=== PATIENT | female | born 1960 | race Caucasian/White ===

== ENCOUNTER 2023-10-22 16:42 | Emergency (ER) | payer OTHER, SELFPAY ==
--- NOTE | ~2023-10-22 | XR_ITS ---
EXAMINATION: XR LUMBOSACRAL SPINE CLINICAL INFORMATION: Low back pain COMPARISON: None available. TECHNIQUE: Three views of the lumbosacral spine. FINDINGS: There is normal lumbar lordosis. The vertebral heights, alignment and disc heights are normal. There is no visible acute fracture, dislocation or subluxation. SI joints are symmetrical and normal. There is moderate stool and gas in colon without distention. XR/XR lumbar spine 2-3V IMPRESSION: Unremarkable lumbar spine exam.
[2023-10-22 17:04] VITALS: BP 139/76; PULSE 95; RESP 18; TEMP 37.2; O2SAT 99; BMI 23.8
--- OUTSIDE RECORDS SUMMARY | 2023-10-22 19:00 | XMS_ITS | Continuity of Care Document ---
Author Name Unknown Organization [facility] lt Address [address] [place] [address]- Care Team Providers Care Trackmobile Operator Name Role Phone Nishant ENCARNACION, Emmanuel Vick Primary Care Physician [phone] [id number] - 04[facility]26/[facility] Adult [address] [place] [address]- Encounter Diagnosis Chronic back pain(Discharge Diagnosis) - 04/19/21 Sinusitis(Discharge Diagnosis) - 04/19/21 Abnormal TSH(Discharge Diagnosis) - 04/19/21 Attending Physician: Not on Staff, Attending MD Referring Physician: Aries MATHIS, Mirella Wright Allergies, Adverse Reactions, Alerts Substance Reaction Severity Status NKA Active Immunizations Given and Recorded Vaccine Date Status Refusal Reason SARS-CoV-2 (COVID-19) Ad26 vaccine 03/05/21 Record ed Diphtheria/Tet/Pertussis, Acel (oldterm) 01/09/18 Given influenza virus vaccine, inactivated 1 08/29/13 Gi sahara influenza virus vaccine, inactivated 2 08/25/11 Gi sahara tetanus-diphtheria toxoids (Td) 10/05/06 Given 1Result Comment: [08/29/2013] PATIENT DECLINES FLU SHOT 2Admin Note: Refused flu shot Medications Agnes By Mouth, 0 Refills, Maintenance, 10/14/16 11:10:52 Start Date: 10/14/16 Status: Ordered cyclobenzaprine 5 mg oral tablet 1 tablet = 5 mg, By Mouth, 3 times a day, for 10 days, # 30 tablet, 0 Refills, Acute 04/29/21 8:00:00 EDT, 04/19/21 8:00:00 EDT, [id number], Partial fill upon patient request if the prescription is for a schedule II opioid drug., 174.5, cm, 05... Start Date: 04/19/21 Stop Date: 04/29/21 Status: Ordered magic mouthwash magic mouthwash, See Instructions, PRN Pain , Mild, # 100 mL, Refills 0, Tot. Refills 0, Maintenance, (30mg benadryl, 30ml lidocaine, 30ml maalox) 5-10ml every 4 hours PRN mouth pain, 04/15/21 15:24:00 EDT, Compound, 174.5, cm, 04/15/21 11:09:00 EDT,... Start Date: 04/15/21 Status: Ordered multivitamin Multiple Vitamins intravenous solution See Instructions, OTC, # 100 each, 0 Refills, Maintenance Start Date: 11/11/12 Status: Ordered omeprazole 20 mg oral delayed release tablet 1 tablet = 20 mg, By Mouth, Every other day, # 15 tablet, 0 Refills, Maintenance, 01/09/18 16:55:57 Start Date: 01/09/18 Status: Ordered Osteo Bi-Flex Plus MSM 1 tablet, By Mouth, Daily, 0 Refills, Maintenance, 02/09/20 7:05:00 EDT Start Date: 02/09/20 Status: Ordered Plaquenil 200 mg oral tablet 200 mg, 1, tablet, By Mouth, Daily, # 30 tablet, Refills 0, Tot. Refills 0, Maintenance, 01/09/18 16:48:40, Do Not Route Start Date: 01/09/18 Status: Ordered Singulair 10 mg oral tablet 10 mg, 1, tablet, By Mouth, Daily, Refills 0, Maintenance, 01/09/19 8:46:05 EST Start Date: 01/09/19 Status: Ordered Vitamin C 500 mg oral tablet 1 tablet = 500 mg, By Mouth, Daily, # 30 tablet, 0 Refills, Maintenance, Tablet Start Date: 11/11/12 Status: Ordered Vitamin D3 1000 intl units oral capsule 1 capsule = 1,000 International_Units, By Mouth, Daily, # 75 capsule, 0 Refills, Maintenance, 02/09/20 7:07:00 EDT, Capsule Start Date: 02/09/20 Status: Ordered Problem List Condition Effective Dates Status Health Status Inform ant Allergic rhinitis(Confirmed) Active Chronic back pain(Confirmed) Active GERD (gastroesophageal reflu x disease)(Confirmed) Active IBS - Irritable bowel syndrome(Confirmed) Active Radiculopathy-C6(Confirmed) Active Rheumatoid arthritis(Confirmed) Active Vitiligo(Confirmed) Active Diagnosis Diagnosis Type Effective Dates Health Status Cl inical Service Informant Chronic back pain Discharge Diagnosis 04/19/21 Sinusitis Discharge Diagnosis 04/19/21 Abnormal TSH Discharge Diagnosis 04/19/21 Vital Signs Most recent to oldest [Reference Range]: 1 Height 174.50 cm (04/19/21 7:30 AM) Weight 72.5 kg (04/19/21 7:30 AM) Oxygen Saturation [94-100 %] 99 % (04/19/21 7:30 AM) Pulse Rate [55-90 bpm] 68 bpm (04/19/21 7:30 AM) Body Mass Index [18.5-24.99] 23.81 (04/19/21 7:30 AM) Blood Pressure [90-138/55-84 mm Hg] 99/6 5mm Hg (04/19/21 7:30 AM) Temperature [96.8-100.4 DegF] 97.7 DegF (04/19/21 7:30 AM) Blood pressure sites Arm, left (04/19/21 7:30 AM) Temperature Route Oral (04/19/21 7:30 AM) Weight Obtained Via Standing scale (04/19/21 7:30 AM) Social History Social History Type Response Smoking Status Never smoker; Tobacc o user in household: No entered on: 06/23/15 Sex
--- OUTSIDE RECORDS SUMMARY | 2023-10-22 19:00 | XMS_ITS | Continuity of Care Document ---
Author Name Unknown Organization [facility] Address [address] [place] [address]- Care Team Providers Care Boiler Out Name Role Phone Nishant ENCARNACION, Emmanuel Vick Primary Care Physician [phone] Encounter [facility] Date(s): 04/07/21 - 05/07/21 [facility] Adult [address] [place] [address]- Allergies, Adverse Reactions, Alerts Substance Reaction Severity [...] 10/14/16 11:10:52 Start Date: 10/14/16 Status: Ordered magic mouthwash magic mouthwash, See [...] Radiculopathy-C6(Confirmed) Active Rheumatoid arthritis(Confirmed) Active Vitiligo(Confirmed) Active Social History Social History Type Response Smoking Status Never smoker; Tobacc o user in household: No entered on: 06/23/15 Sex
--- OUTSIDE RECORDS SUMMARY | 2023-10-22 19:01 | XMS_ITS | Continuity of Care Document ---
Author Name Unknown Organization [facility] Address [address] [place] [address]- Care Team Providers Care Hunter Trapper Name Role Phone Nishant ENCARNACION, Emmaneul Vick Primary Care Physician [place] [facility] Date(s): 04/06/21 - 05/06/21 [facility] Adult [address] [place] [address]- Allergies, Adverse Reactions, Alerts Substance Reaction Severity [...]
--- OUTSIDE RECORDS SUMMARY | 2023-10-22 19:01 | XMS_ITS | Continuity of Care Document ---
Author Name Unknown Organization [facility] Thompson lt Address [address] [place] [address]- Care Team Providers Care Contingents Supervisor Name Role Phone Nishant ENCARNACION, Emmanuel Vick Primary Care Physician [phone] Encounter [facility] Date(s): 04/02/23 - 05/02/23 [facility] Adult [address] [place] [address]- Allergies, Adverse Reactions, Alerts No Known Allergies Immunizations Given and Recorded Vaccine Date Status Refusal Reason [id number] bivalent booster vax 09/20/22 Recorded SARS-CoV-2 (COVID-19) mRNA-1273 vaccine 1 03/03/22 Recorded SARS-CoV-2 (COVID-19) Ad26 vaccine 03/05/21 Record ed Diphtheria/Tet/Pertussis, Acel (oldterm) 01/09/18 Given influenza virus vaccine, inactivated 2 08/29/13 Gi sahara influenza virus vaccine, inactivated 3 08/25/11 Gi sahara tetanus-diphtheria toxoids (Td) 10/05/06 Given 1Result Comment: Booster 2Result Comment: [08/29/2013] PATIENT DECLINES FLU SHOT 3Admin Note: Refused flu shot Medications Agnes By Mouth, 0 Refills, Maintenance, 10/14/16 11:10:52 Start Date: 10/14/16 Status: Ordered Calcium and Zinc oral tablet With Magnesium, 0 Refills, Maintenance, 02/23/23 8:52:00 EDT, Partial fill upon patient request if the prescription is for a schedule II opioid drug. Start Date: 02/23/23 Status: Ordered multivitamin Multiple Vitamins intravenous solution See Instructions, OTC, # 100 each, 0 Refills, Maintenance Start Date: 11/11/12 Status: Ordered omeprazole 20 mg oral delayed release tablet 1 tablet = 20 mg, By Mouth, Daily, # 30 tablet, 0 Refills, Maintenance, 11/11/21 10:45:00 EST, Partial fill upon patient request if the prescription is for a schedule II opioid drug. Start Date: 11/11/21 Status: Ordered Osteo Bi-Flex Plus MSM 1 tablet, By Mouth, Daily, 0 Refills, Maintenance, 02/09/20 7:05:00 EDT Start Date: 02/09/20 Status: Ordered Plaquenil 200 mg oral tablet 200 mg, 1, tablet, By Mouth, Daily, # 30 tablet, Refills 0, Tot. Refills 0, Maintenance, 01/09/18 16:48:40, Do Not Route Start Date: 01/09/18 Status: Ordered Probiotic Formula See Instructions, By Mouth Daily, 0 Refills, Maintenance, 02/16/22 15:40:00 EDT, Partial fill upon patient request if the prescription is for a schedule II opioid drug. Start Date: 02/16/22 Status: Ordered Vitamin C 500 mg oral tablet 1 tablet = 500 mg, By Mouth, Daily, # 30 tablet, 0 Refills, Maintenance, Tablet Start Date: 11/11/12 Status: Ordered Problem List Condition Confirmation Course Effective Dates Status Health St atus Informant Allergic rhinitis Confirmed Active Chronic back pain Confirmed Active GERD (gastroesophageal reflux disease) Confirmed Active IBS - Irritable bowel syndrome Confirmed Active Radiculopathy-C6 Confirmed Active Rheumatoid arthritis Confirmed Active Vitiligo Confirmed Active Social History Social History Type Response Smoking Status Never smoker; Tobacc o user in household: No entered on: 06/23/15 Sex Patient Care team information Care Team Personnel Name: Emmanuel Dillard MD Position: [facility] Physician - Primary Care Member Role: PCP Address: Address: [address] [place] [address]- [place] Care Team Related Persons Name: DAVE SCHUMACHER Name: ZAHRA GAMBLE Address: home [address] [place] [address]
--- OUTSIDE RECORDS SUMMARY | 2023-10-22 19:01 | XMS_ITS | Continuity of Care Document ---
Author Name Unknown Organization [facility] Thompson lt Address [address] [place] [address]- Care Team Providers Care Academic Support Center Director Name Role Phone Emmanuel Dillard MD Primary Care Physician [phone] [id number] 11/28/22 - 02/03/23 [facility] Adult [address] [place] [address]- Attending Physician: Emmanuel Dillard MD Allergies, Adverse Reactions, Alerts No Known Allergies Immunizations Given and Recorded Vaccine Date Status Refusal Reason [id number] bivalent booster vax 09/20/22 Recorded SARS-CoV-2 (COVID-19) [...] 10/14/16 11:10:52 Start Date: 10/14/16 Status: Ordered multivitamin Multiple Vitamins intravenous solution [...] Team Personnel Name: Emmanuel Dillard MD Position: S Primary Care Physician Member Role: PCP Address: Address: [address] [place] [address]- Care Team Related Persons Name: DAVE SCHUMACHER Name: ZAHRA GAMBLE Address: home [address] [place] [address]
--- OUTSIDE RECORDS SUMMARY | 2023-10-22 19:01 | XMS_ITS | Continuity of Care Document ---
Author Name Unknown Organization [facility] Address [address] [place] [address]- Care Team Providers Care Ibm Bpm Developer Name Role Phone Emmanuel Dillard MD Primary Care Physician [place] [facility] [place]/29/20 - 12/29/[address] [address] Discharge Disposition: A-D/C Home Attending Physician: Emmanuel Dillard MD Admitting Physician: Emmanuel Dillard MD Referring Physician: Emmanuel Dillard MD Allergies, Adverse Reactions, Alerts Substance Reaction Severity Status NKA Active Immunizations Given and Recorded Vaccine Date Status Refusal Reason Diphtheria/Tet/Pertussis, Acel (oldterm) 01/09/18 Given influenza virus vaccine, inactivated 1 08/29/13 Gi saahra influenza virus vaccine, inactivated 2 08/25/11 Gi [...] Health Status Inform ant Allergic rhinitis(Confirmed) Active GERD (gastroesophageal reflu x disease)(Confirmed) Active IBS - Irritable bowel syndrome(Confirmed) Active Radiculopathy-C6(Confirmed) Active Rheumatoid arthritis(Confirmed) Active Vitiligo(Confirmed) Active Social History Social History Type Response Smoking Status Never smoker; Tobacc o user in household: No entered on: 06/23/15 Sex
--- OUTSIDE RECORDS SUMMARY | 2023-10-22 19:01 | XMS_ITS | Continuity of Care Document ---
Author Name Unknown Organization [facility] Thompson lt Address [address] [place] [address]- Care Team Providers Care Forepart Reducer Name Role Phone Nishant ENCARNACION, Emmanuel Vick Primary Care Physician [phone] Encounter [facility] Date(s): 05/25/21 - 06/24/21 [facility] Adult [address] [place] [address]- Allergies, Adverse Reactions, Alerts Substance Reaction Severity [...]
--- OUTSIDE RECORDS SUMMARY | 2023-10-22 19:01 | XMS_ITS | Continuity of Care Document ---
Author Name Unknown Organization [facility] Thompson [facility] Address [address] [place] [address]- Care Team Providers Care Counseling Services Director Name Role Phone Nishant ENCARNACION, Emmanuel Vick Primary Care Physician En[facility] Date(s): 12/23/20 - 01/22/21 [facility] Adult [address] [place] [address]- Allergies, Adverse Reactions, Alerts Substance Reaction Severity [...] tablet, Refills 0, Tot. Refills 0, Maintenance, 02/14/18 16:48:40, Do Not Route Start Date: 01/09/18 [...]
--- OUTSIDE RECORDS SUMMARY | 2023-10-22 19:01 | XMS_ITS | Continuity of Care Document ---
Author Name Unknown Organization [facility] Address Unknown Care Team Providers Care Charge Operator Name Role Phone Nishant ENCARNACION, Emmanuel Vick Primary Care Physician [phone] Encounter [facility] Date(s): 06/24/21 - 07/24/21 [facility] Allergies, Adverse Reactions, Alerts Substance Reaction Severity [...]
--- OUTSIDE RECORDS SUMMARY | 2023-10-22 19:01 | XMS_ITS | Continuity of Care Document ---
Author Name Unknown Organization [facility] Thompson lt Address [address] [place] [address]- Care Team Providers Care Senior Administrative Support Name Role Phone Nishant ENCARNACION, Emmanuel Vick Primary Care Physician [phone] Encounter [facility] Date(s): 04/04/21 - 05/04/21 [facility] Adult [address] [place] [address]- Allergies, Adverse Reactions, Alerts Substance Reaction Severity [...]
--- OUTSIDE RECORDS SUMMARY | 2023-10-22 19:01 | XMS_ITS | Continuity of Care Document ---
Author Name Unknown Organization [facility] Address [address] [place] [address]- Care Team Providers Care Sales Support Associate Name Role Phone Nishant ENCARNACION, Emmanuel Vick Primary Care Physician [place] [facility] Date(s): 01/13/21 - 02/12/21 [facility] [address] [place] [address]- Allergies, Adverse Reactions, Alerts Substance Reaction Severity [...]
--- OUTSIDE RECORDS SUMMARY | 2023-10-22 19:01 | XMS_ITS | Continuity of Care Document ---
Author Name Unknown Organization [facility] Thompson [facility] Address [address] [place] [address]- Care Team Providers Care Hot Tar Roofer Helper Name Role Phone Nishant ENCARNACION, Emmanuel Vick Primary Care Physician [phone] [place] [facility] 05/23/21 - 06/22/21 [facility] Adult [address] [place] [address]- Allergies, Adverse Reactions, Alerts Substance Reaction Severity [...]
--- OUTSIDE RECORDS SUMMARY | 2023-10-22 19:01 | XMS_ITS | Continuity of Care Document ---
Author Name Unknown Organization [facility] Address [address] [place] [address]- Care Team Providers Care Property Insurance Agent Name Role Phone Nishant ENCARNACION, Emmanuel Vick Primary Care Physician Encounter [facility] Date(s): 09/25/22 - 10/25/22 [facility] Adult [address] [place] [address]- Allergies, Adverse Reactions, Alerts No Known Allergies Immunizations Given and Recorded Vaccine Date Status Refusal Reason [id number] bivalent booster vax 09/20/22 Recorded SARS-CoV-2 (COVID-19) [...] Team Personnel Name: Emmanuel Dillard MD Position: [facility] Primary Care Physician Member Role: PCP Address: Address: [address] [place] [address]- Care Team Related Persons Name: ZAHRA GAMBLE Address: home [address] [place] [address]
--- OUTSIDE RECORDS SUMMARY | 2023-10-22 19:01 | XMS_ITS | Continuity of Care Document ---
Author Name Unknown Organization [facility] Address [address] [place] [address]- Care Team Providers Care Livestock Ranch Hand Name Role Phone Nishant ENCARNACION, Emmanuel Vick Primary Care Physician Encounter [facility] [place] Date(s): 03/28/21 - 04/04/21 [facility] [address] [place] [address]- Attending Physician: Nghia Manzo MD Admitting Physician: Nghia Manzo MD Referring Physician: Aries MATHIS, Mirella Wright [...] 10/14/16 11:10:52 Start Date: 10/14/16 Status: Ordered Diflucan 150 mg oral tablet See Instructions, 1 tablet By Mouth now, then repeat in 7 days if symptoms persist, # 2 tablet, 0 Refills, Maintenance, 02/20/21 9:37:00 EDT, Tablet, [id number], Partial fill upon patient request if the prescription is for a schedule II opioid... Start Date: 02/20/21 Status: Ordered gabapentin 100 mg oral capsule 100 mg, 1, capsule, By Mouth, Daily, # 30 capsule, Refills 2, Tot. Refills 2, Maintenance, 217:13:00 EDT, Route to Pharmacy Electronically, [id number], Partial fill upon patient request if the prescription is for a schedule II opioid . Start Date: 03/24/21 Status: Ordered multivitamin Multiple Vitamins intravenous solution [...] Radiculopathy-C6(Confirmed) Active Rheumatoid arthritis(Confirmed) Active Vitiligo(Confirmed) Active Vital Signs Most recent to oldest [Reference Range]: 1 Height 174.50 cm (03/28/21 10:05 AM) Weight 75 kg (03/28/21 10:05 AM) Oxygen Saturation [94-100 %] 99 % (03/28/21 10:05 AM) Pulse Rate [55-90 bpm] 69 bpm (03/28/21 10:05 AM) Body Mass Index [18.5-24.99] 24.63 (03/28/21 10:05 AM) Blood Pressure [90-138/55-84 mm Hg] 132/ 62mm Hg (03/28/21 10:05 AM) Mode of Delivery (Oxygen) Room air (03/28/21 10:05 AM) Blood pressure sites Arm, left (03/28/21 10:05 AM) Weight Obtained Via Patient/family state d (03/28/21 10:05 AM) Social History Social History Type Response Smoking Status Never smoker; Tobacc o user in household: No entered on: 06/23/15 Sex
--- OUTSIDE RECORDS SUMMARY | 2023-10-22 19:01 | XMS_ITS | Continuity of Care Document ---
Author Name Unknown Organization [facility] Thompson lt Address [address] [place] [address]- Care Team Providers Care Yard Coupler Name Role Phone Emmanuel Dillard MD Primary Care Physician Encounter [facility] ACCT R [id number] Date(s): 11/28/22 - 12/05/22 [facility] Adult [address] [place] [address]- Attending Physician: Not on Staff, Attending MD Referring Physician: Emmanuel Dillard MD Allergies, Adverse Reactions, Alerts No Known Allergies Immunizations Given and Recorded Vaccine Date Status Refusal Reason [id number] bivalent booster vax 09/20/22 Recorded SARS-CoV-2 (COVID-19) [...] Rheumatoid arthritis Confirmed Active Vitiligo Confirmed Active Vital Signs Most recent to oldest [Reference Range]: 1 2 Height 174.50 cm (11/29/22 1:42 PM) 174.50 cm (11/28/22 3:13 PM) Weight 73.6 kg (11/29/22 1:42 PM) 73.6 kg (11/28/22 3:13 PM) Oxygen Saturation [94-100 %] 98 % (11/28/22 3:13 PM) Pulse Rate [55-90 bpm] 70 bpm (11/28/22 3:13 PM) Body Mass Index [18.5-24.99 kg/m2] 24.17 kg/m2 (11/28/22 3:13 PM) Blood Pressure [90-138/55-84 mm Hg] 116/ 68mm Hg (11/28/22 3:13 PM) Respiratory Rate [16-30 br/min] 16 br/mi n (11/28/22 3:13 PM) Mode of Delivery (Oxygen) Room air (11/28/22 3:13 PM) Blood pressure sites Arm, left (11/28/22 3:13 PM) Weight Obtained Via Standing scale (11/28/22 3:13 PM) Social History Social History Type Response Smoking Status Never smoker; Tobacc o user in household: No entered on: 06/23/15 Sex EKG study * Event Display: ECG 12-Lead Authored Date: Please click on pdf link to open report * Event Display: ECG 12-Lead Authored Date: Ventricular Rate: 71 BPM Atrial Rate: 72 BPM P-R Interval: 134 ms QRS Duration: 92 ms Q-T Interval: 404 ms QTC Calculation(Bazett): 439 ms P [place]: 43 degrees R [place]: 49 degrees T [place]: 63 degrees Sinus rhythm with marked sinus arrhythmia Otherwise normal ECG No previous ECGs available Confirmed by DARRIUS MILLER MD ([id number]) on 11/30/2022 12:34:45 PM [place]: DARRIUS MILLER MD Note * Omayra Belcher: PERFORM, SIGN, VERIFY Event Display: Patient Education/Instruction Authored Date: [id number] [facility] *BMP [place] Madrigal Clinical Summary Name IRIS DUARTE Age 62 Years 1960 PCP Nishant ENCARNACION, Emmanuel Vick PCP Visit Date 11/28/2022 15:11:00 Additional Instructions: Scheduled Appointments?? Future Appointments ?*BMP??So[facility] ?[address] ?Phone:??--?Fax:??-- ?Appt. Date:??02/23/2023?8:50 AM ?Scheduled Provider:??Emmanuel Dillard MD Follow-Up Instructions ?? With: Address: When: Emmanuel Dillard MD Comments: 1 month Diagnosis Chest pain, unspecified Medications: Please continue your medications until treatment is completed or stopped by your provider. Discuss any questions related to medications with your provider. Medications to Continue with No Changes These medications were not printed or sent to your pharmacy Ascorbic Acid (Vitamin C 500 mg oral tablet) 1 tab(s) Oral Daily. Refills: 0. Next Dose: bifidobacterium-lactobacillus (Probiotic Formula) By Mouth Daily. Next Dose: Chondroitin/Glucosamine/Methylsulfonylmethane (Osteo Bi-Flex Plus MSM) 1 tab(s) Oral Daily. Next Dose: Fexofenadine (Agnes) Oral. Next Dose: Hydroxychloroquine (Plaquenil 200 mg oral tablet) 1 tab(s) Oral Daily. Refills: 0. Next Dose: Multivitamin (multivitamin Multiple Vitamins intravenous solution) OTC. Refills: 0. Next Dose: Omeprazole (omeprazole 20 mg oral delayed release tablet) 1 tab(s) Oral Daily. Refills: 0. Next Dose: Allergy Info:?? NKA Medications Given This Visit Future Orders ?CBC w/ Differential? Order Date:11/28/22?- Complete on or after?11/28/22 ?Comprehensive Metabolic Panel? Order Date:11/28/22?- Complete on or after?11/28/22 ?Chest 2 Views Frontal and Lat? Order Date:11/28/22?- Complete on or after?11/28/22 ?Thyroid Panel? Order Date:11/28/22?- Complete on or after?11/28/22 Vital Signs Height 174.50 cm Weight 73.6 kg BMI 24.17 kg/m2 Blood Pressure 116 mm Hg/68 mm Hg Temperature Pulse Rate 70 bpm Respiratory Rate 16 br/min 02 Sat Mode of Delivery 98 %/Room air You can now view a summary of your hospital visit from the comfort of your home through a free online portal called [employer]. [employer] is a website that allows you to securely view your medical information including discharge summary, medications and follow-up visits. ??You can alsosend a secure electronic message to your doctor???s office to request appointments, renew medications or just ask a question. You can enroll at [email or web address] or register during your next office visit. Disclaimer:?? The information provided is of a general nature and is intended to be used in conjunction with the recommendations and advice of your health care practitioner. ??Every effort has been made to ensure that the information provided is accurate and complete at the time it is provided to you however, as your needs change, or, as new ??information becomes available, different or additional instructions may be required. If you have questions, please consult with your primary care provider or pharmacist, as appropriate. ??This information is not intended to serve as substitution for assessment and evaluation by a qualified health care provider. If you do not have a primary care provider, you may find a [facility] provider by calling [facility] at [phone]. For information about the plan of care including goals and instructions for your diagnosis, please see the patient education orders section of this document. Patient Education Materials?? The content of this educational material or handout may have been modified, supplemented, or adapted from its original content and format to support your individualized medical care. Patient Care team information Care Team Personnel Name: Nishant ENCARNACION, Emmanuel Vick Position: [facility] Primary Care Physician Member Role: PCP Address: Address: [address] [place] [address]- Care Team Related Persons Name: ZAHRA GAMBLE Address: home [address] [place] [address]
--- OUTSIDE RECORDS SUMMARY | 2023-10-22 19:01 | XMS_ITS | Continuity of Care Document ---
Author Name Unknown Organization [facility] Thompson lt Address [address] [place] [address]- Care Team Providers Care Adolescent Medicine Specialist Name Role Phone Emmanuel Dillard MD Primary Care Physician En[place] [facility] Date(s): 11/05/20 - 11/12/20 [facility] Adult [address] [place] [address]- Attending Physician: Emmanuel Dillard MD Allergies, Adverse [...] oldest [Reference Range]: 1 Height 174.50 cm (11/05/20 6:56 AM) Weight 77.9 kg (11/05/20 6:56 AM) Oxygen Saturation [94-100 %] 98 % (11/05/20 6:56 AM) Pulse Rate [55-90 bpm] 72 bpm (11/05/20 6:56 AM) Body Mass Index [18.5-24.99] 25.58 *H* (11/05/20 6:56 AM) Blood Pressure [90-138/55-84 mm Hg] 118/ 80mm Hg (11/05/20 6:56 AM) Temperature [96.8-100.4 DegF] 97.9 DegF (11/05/20 6:56 AM) Mode of Delivery (Oxygen) Room air (11/05/20 6:56 AM) Blood pressure sites Arm, left (11/05/20 6:56 AM) Temperature Route Oral (11/05/20 6:56 AM) Weight Obtained Via Standing scale (11/05/20 6:56 AM) Social History Social History Type Response Smoking Status Never smoker; Tobacc o user in household: No entered on: 06/23/15 Sex
--- OUTSIDE RECORDS SUMMARY | 2023-10-22 19:01 | XMS_ITS | Continuity of Care Document ---
Author Name Unknown Organization [facility] Thompson lt Address [address] [place] [address]- Care Team Providers Care Methods Time Analyst Name Role Phone Emmanuel Dillard MD Primary Care Physician Encounter [facility] Date(s): 10/24/21 - 10/31/21 [facility] Adult [address] [place] [address]- Attending Physician: Emmanuel Dillard MD Allergies, Adverse [...] Maintenance Start Date: 11/11/12 Status: Ordered omeprazole 40 mg oral enteric coated capsule 1 capsule = 40 mg, By Mouth, Daily, # 90 capsule, 0 Refills, Maintenance, 08/05/21 8:56:00 EDT, EC Capsule, Partial fill upon patient request if the prescription is for a schedule II opioid drug. Start Date: 08/05/21 Status: Ordered Osteo Bi-Flex Plus MSM 1 [...]
--- OUTSIDE RECORDS SUMMARY | 2023-10-22 19:01 | XMS_ITS | Continuity of Care Document ---
Author Name Unknown Organization [facility] Thompson lt Address [address] [place] [address]- Care Team Providers Care News Gathering Technician Name Role Phone Nishant ENCARNACION, Emmanuel Vick Primary Care Physician [place] [facility] Date(s): 12/01/20 - 12/31/20 [facility] Adult [address] [place] [address]- Allergies, Adverse Reactions, Alerts Substance Reaction Severity [...]
--- OUTSIDE RECORDS SUMMARY | 2023-10-22 19:01 | XMS_ITS | Continuity of Care Document ---
Author Name Unknown Organization [facility] Address [address] [place] [address]- Care Team Providers Care White Sugar Supervisor Name Role Phone Nishant ENCARNACION, Emmanuel Vick Primary Care Physician Encounter [facility] Date(s): 05/02/21 - 06/01/21 [facility] [address] [place] [address] Attending Physician: AdmDarek logan Admitting Physician: AdmtrDarek Referring Physician: Admtr, ArCadence Allergies, Adverse Reactions, Alerts Substance Reaction Severity [...]
--- OUTSIDE RECORDS SUMMARY | 2023-10-22 19:01 | XMS_ITS | Continuity of Care Document ---
Author Name Unknown Organization [facility] Thompson lt Address [address] [place] [address]- Care Team Providers Care Die Cutter Name Role Phone Emmanuel Dillard MD Primary [id number]23[facility]22 [facility] Adult [address] [place] [address]- Attending Physician: Emmanuel Dillard MD Allergies, Adverse [...] tablet, By Mouth, Daily, 0 Refills, Maintenance, 03/16/20 7:05:00 EDT Start Date: 02/09/20 Status: Ordered [...] Date: 11/11/12 Status: Ordered Problem List Condition Effective Dates Status Health Status Inform ant Allergic rhinitis(Confirmed) Active Chronic back pain(Confirmed) Active GERD (gastroesophageal reflu x disease)(Confirmed) Active IBS - Irritable bowel syndrome(Confirmed) Active Radiculopathy-C6(Confirmed) Active Rheumatoid arthritis(Confirmed) Active Vitiligo(Confirmed) Active Vital Signs Most recent to oldest [Reference Range]: 1 Height 174.50 cm (02/16/22 3:37 PM) Weight 70.5 kg (02/16/22 3:37 PM) Oxygen Saturation [94-100 %] 100 % (02/16/22 3:37 PM) Pulse Rate [55-90 bpm] 79 bpm (02/16/22 3:37 PM) Body Mass Index [18.5-24.99] 23.15 (02/16/22 3:37 PM) Blood Pressure [90-138/55-84 mm Hg] 113/ 74mm Hg (02/16/22 3:37 PM) Blood pressure sites Arm, right (02/16/22 3:37 PM) Weight Obtained Via Standing scale (02/16/22 3:37 PM) Social History Social History Type Response Smoking Status Never smoker; Tobacc o user in household: No entered on: 06/23/15 Sex
--- OUTSIDE RECORDS SUMMARY | 2023-10-22 19:01 | XMS_ITS | Continuity of Care Document ---
Author Name Unknown Organization [facility] Thompson lt Address [address] [place] [address]- Care Team Providers Care Ict Security Specialist Name Role Phone Nishant ENCARNACION, Emmanuel Vick Primary Care Physician Encounter [facility] Date(s): 04/06/21 - 05/06/21 [facility] Adult [address] [place] [address]- Allergies, Adverse Reactions, Alerts Substance Reaction Severity [...]
--- OUTSIDE RECORDS SUMMARY | 2023-10-22 19:01 | XMS_ITS | Continuity of Care Document ---
Author Name Unknown Organization [facility] Thompson lt Address [address] [place] [address]- Care Team Providers Care Waste Handling Technician Name Role Phone Emmanuel Dillard MD Primary [id number] Date[facility]15/[facility] - 04/22/21 [facility] Adult [address] [place] [address]- Attending Physician: Devan Dumont MD Referring Physician: Emmanuel Dillard MD Allergies, [...] Acute 04/29/21 8:00:00 EDT, 04/19/21 8:00:00 EDT, [facility]/pharmacy #[id number], Partial fill upon patient request if the prescription is for a schedule II opioid drug., 174.5, cm, 05... Start Date: 04/19/21 Stop Date: 04/29/21 Status: Ordered doxycycline hyclate 100 mg oral capsule 1 capsule = 100 mg, By Mouth, 2 times a day, for 7 days, # 14 capsule, 0 Refills, Acute 04/26/21 7:55:00 EDT, 04/19/21 7:55:00 EDT, [facility]/pharmacy #[id number], Partial fill upon patient request if the prescription is for a schedule II opioid drug., 174.5, cm,... Start Date: 04/19/21 Stop Date: 04/26/21 Status: Ordered magic mouthwash magic mouthwash, See [...] oldest [Reference Range]: 1 Height 174.50 cm (04/15/21 11:09 AM) Weight 70.45 kg (04/15/21 11:09 AM) Body Mass Index [18.5-24.99] 23.14 (04/15/21 11:09 AM) Weight Obtained Via Standing scale (04/15/21 11:09 AM) Social History Social History Type Response Smoking Status Never smoker; Tobacc o user in household: No entered on: 06/23/15 Sex
--- OUTSIDE RECORDS SUMMARY | 2023-10-22 19:01 | XMS_ITS | Continuity of Care Document ---
Author Name Unknown Organization [facility] Thompson lt Address [address] [place] [address]- Care Team Providers Care Car Jockey Name Role Phone Nishant ENCARNACION, Emmanuel Vick Primary Care Physician [phone] Encounter [facility] Date(s): 10/26/21 - 11/25/21 [facility] Adult [address] [place] [address]- Allergies, Adverse Reactions, Alerts Substance Reaction Severity [...] Not Route Start Date: 01/09/18 Status: Ordered Vitamin C 500 mg oral [...]
--- OUTSIDE RECORDS SUMMARY | 2023-10-22 19:01 | XMS_ITS | Continuity of Care Document ---
Author Name Unknown Organization [facility] Thompson lt Address [address] [place] [address]- Care Team Providers Care Printed Circuit Designer Name Role Phone Nishant ENCARNACION, Emmanuel Vick Primary Care Physician Encounter [facility] [place] [facility] Date(s): 05/23/21 - 06/22/21 [facility] Adult [address] [place] [address]- Allergies, Adverse Reactions, Alerts Substance Reaction Severity [...]
--- OUTSIDE RECORDS SUMMARY | 2023-10-22 19:01 | XMS_ITS | Continuity of Care Document ---
Author Name Unknown Organization [facility] Address [address] [facility] [place] [address]- Care Team Providers Care Tafe Lecturer Name Role Phone Nishant ENCARNACION, Emmanuel Vick Primary Care Physician Encounter 05/24/22 - 05/31/22 [facility] [address], [address] [place] [address]- Attending Physician: Chelsy Jaramillo MD Admitting Physician: Chelsy Jaramillo MD Referring Physician: Chelsy Jaramillo MD Allergies, Adverse Reactions, Alerts No Known Allergies Immunizations Given and Recorded Vaccine Date Status Refusal Reason SARS-CoV-2 (COVID-19) [id number] vaccine 1 03/03/22 Recorded [...]
--- OUTSIDE RECORDS SUMMARY | 2023-10-22 19:01 | XMS_ITS | Continuity of Care Document ---
Author Name Unknown Organization [facility] Address [address] [place] [address]- Care Team Providers Care Metal Bonding Worker Name Role Phone Emmanuel Dillard MD Primary Care Physician [place] [facility] [place] [id number] Date(s): 05/02/21 - 05/09/21 [facility] [address] [place] [address]- Attending Physician: Nghia Manzo MD Admitting Physician: Nghia aMnzo MD Referring Physician: Emmanuel Dillard MD Allergies, [...]
--- OUTSIDE RECORDS SUMMARY | 2023-10-22 19:01 | XMS_ITS | Continuity of Care Document ---
Author Name Unknown Organization [facility] Thompson [facility] Address [address] [place] [address]- Care Team Providers Care Preschool Program Director Name Role Phone Nishant ENCARNACION, Emmanuel Vick Primary Care Physician [phone] Encounter [facility] Date(s): 11/01/20 - 12/01/20 [facility] Adult [address] [place] [address]- Allergies, Adverse Reactions, Alerts Substance Reaction Severity [...]
--- OUTSIDE RECORDS SUMMARY | 2023-10-22 19:01 | XMS_ITS | Continuity of Care Document ---
Author Name Unknown Organization [facility] Thompson lt Address [address] [place] [address]- Care Team Providers Care Director Of Infection Prevention Name Role Phone Nishant ENCARNACION, Emmanuel Vick Primary Care Physician Encounter [facility] Date(s): 04/20/21 - 05/20/21 [facility] Adult [address] [place] [address]- Allergies, Adverse Reactions, Alerts Substance Reaction Severity [...]
--- OUTSIDE RECORDS SUMMARY | 2023-10-22 19:01 | XMS_ITS | Continuity of Care Document ---
Author Name Unknown Organization [facility] Address [address] [place] [address]- Care Team Providers Care Mortgage Manager Name Role Phone Emmanuel Dillard MD Primary Care Physician Encounter [facility] Date(s): 04/23/20 - 04/30/20 [facility] [address] [place] [address]- [facility] Attending Physician: Emmanuel Dillard MD Admitting Physician: [...]
--- OUTSIDE RECORDS SUMMARY | 2023-10-22 19:01 | XMS_ITS | Continuity of Care Document ---
Author Name Unknown Organization [facility] Address [address] [place] [address]- Care Team Providers Care Rip Machine Operator Name Role Phone Nishant ENCARNACION, Emmanuel Vick Primary Care Physician [phone] Encounter [facility] Date(s): 04/08/21 - 05/08/21 [facility] [address] [place] [address]- Attending Physician: Darek Isabel Admitting Physician: AdmDarek logan Referring Physician: AdmtrDarek Allergies, Adverse Reactions, Alerts Substance Reaction Severity [...]
--- OUTSIDE RECORDS SUMMARY | 2023-10-22 19:01 | XMS_ITS | Continuity of Care Document ---
Author Name Unknown Organization [facility] Thompson [facility] Address [address] [place] [address]- Care Team Providers Care Clinical Appeals Auditor Name Role Phone Nishant ENCARNACION, Emmanuel Vick Primary Care Physician [phone] En[place] [facility] Date(s): 04/19/21 - 05/19/21 [facility] Adult [address] [place] [address]- Attending Physician: Admtr, Ar8 Admitting Physician: Admtr, Ar8 Referring Physician: Admtr, Ar8 Allergies, Adverse Reactions, Alerts Substance Reaction Severity [...]
--- OUTSIDE RECORDS SUMMARY | 2023-10-22 19:01 | XMS_ITS | Continuity of Care Document ---
Author Name Unknown Organization [facility] Thompson lt Address [address] [place] [address]- Care Team Providers Care Air Intercept Controller Name Role Phone Nishant ENCARNACION, Emmanuel Vick Primary Care Physician Encounter [facility] Date(s): 10/19/20 - 11/18/20 [facility] Adult [address] [place] [address]- Allergies, Adverse Reactions, Alerts Substance Reaction Severity [...]
--- OUTSIDE RECORDS SUMMARY | 2023-10-22 19:01 | XMS_ITS | Continuity of Care Document ---
Author Name Unknown Organization [facility] Thompson [facility] Address [address] [place] [address]- Care Team Providers Care Shift Production Associate Name Role Phone Nishant ENCARNACION, Emmanuel Vick Primary Care Physician Encounter [facility] Date(s): 01/02/23 - 02/01/23 [facility] Adult [address] [place] [address]- Allergies, Adverse Reactions, Alerts No Known Allergies Immunizations Given and Recorded Vaccine Date Status Refusal Reason [id number] bivalent booster vax 09/20/22 Recorded SARS-CoV-2 (COVID-19) [...] Care Physician Member Role: PCP Address: Address: [address] [place] [address]- Care Team Related Persons Name: DAVE SCHUMACHER Name: ZAHRA GAMBLE Address: home [address] [place] [address]
--- OUTSIDE RECORDS SUMMARY | 2023-10-22 19:01 | XMS_ITS | Continuity of Care Document ---
Author Name Unknown Organization [facility] Address [address] [facility] [place] [address]- Care Team Providers Care Diesel Service Technician Name Role Phone Nishant ENCARNACION, Emmanuel Vick Primary Care Physician [phone] Encounter 01/12/21 - 01/19/21 [facility] [address], [address] [place] [address]- Attending Physician: Amy Jaramillo MD Admitting Physician: Amy Jaramillo MD Referring Physician: Amy Jaramillo MD Allergies, Adverse Reactions, Alerts Substance Reaction [...] Radiculopathy-C6(Confirmed) Active Rheumatoid arthritis(Confirmed) Active Vitiligo(Confirmed) Active Results Radiology Reports * Exam Date Time Procedure Performing Provider Status 01/12/21 3:27 PM Dexa Bone Density (Axial) Eamon Verduzco (Verified) Notes: (Dexa Bone Density (Axial)) Reason For Exam: M85.5 MENOPAUSE RESULT: DEXA BONE DENSITY (AXIAL) Bone Density Report Name: IRIS DUARTE Age: 60 Sex: Female Ethnicity: White Date of : 1960 Indication: POSTMENOPAUSAL. Referring Provider: AMY JARAMILLO Study: Bone densitometry was performed. Exam Date: January 12, 2021 Accession number: [id number] Bone Density: Region BMD T-score Z-score Classification AP Spine (L1, L2, L3) 0.741 -2.5 -1.2 Osteoporosis Femoral Neck (Right) 0.747 -0.9 0.3 Normal Total Hip (Right) 0.755 -1.5 -0.6 Osteopenia World Health Organization criteria for BMD impression classify patients as: Normal (T-score at or above -1.0), Osteopenia (T-score between -1.0 and -2.5), or Osteoporosis (T-score at or below -2.5). 10-year Fracture Risk: FRAX not reported because: Some T-score at or below -2.5 Previous Exams: Region Exam Age BMD T-score BMD Change BMD Change Date g/cm2 vs Baseline vs Previous AP Spine(L1, L2, L3) 01/12/2021 60 0.741 -2.5 -9.7%* -3.8%* 06/26/2018 57 0.771 -2.2 -6.1%* -6.1%* 11/04/2014 54 0.821 -1.8 Total Hip(Right) 01/12/2021 60 0.755 -1.5 -9.6%* 4.5%* 06/26/2018 57 0.722 -1.8 -13.5%* -13.5%* 11/04/2014 54 0.835 -0.9 Femoral Neck(Right) 01/12/2021 60 0.747 -0.9 2.3% 11.0%* 06/26/2018 57 0.673 -1.6 -7.9%* -7.9%* 11/04/2014 54 0.730 -1.1 *Denotes significance at 95% confidence level, LSC for AP Spine = 0.022 g/cm2, LSC for Total Hip = 0.027 g/cm2 Impression: The patient has osteoporosis as determined by WHO criteria. Reported by: Deep Pham M.D. on 01/12/2021 4:52:00 PM. Dictated By: Deep Pham MD Dictated Date/Time: 01/12/21 4:53 pm Reviewed By: Deep Pham MD Signed By: Deep Pham MD Signed Date/Time: 01/12/21 4:53 pm Transcribed By: LAUREN Transcribed Date/Time: 01/12/21 4:53 pm Social History Social History Type Response Smoking Status Never smoker; Tobacc o user in household: No entered on: 06/23/15 Sex
--- OUTSIDE RECORDS SUMMARY | 2023-10-22 19:01 | XMS_ITS | Continuity of Care Document ---
Author Name Unknown Organization [facility] Thompson lt Address [address] [place] [address]- Care Team Providers Care Industrial Painter Name Role Phone Nishant ENCARNACION, Emmanuel Vick Primary Care Physician Encounter [facility] [place] Date(s): 12/26/22 - 01/25/23 [facility] Adult [address] [place] [address]- Allergies, Adverse Reactions, Alerts No Known Allergies Immunizations Given and Recorded Vaccine Date Status Refusal Reason [id number] bivalent booster vax 09/20/22 Recorded SARS-CoV-2 (COVID-19) [...] Care Physician Member Role: PCP Address: Address: [address] [place] [address]- Care Team Related Persons Name: DAVE SCHUMACHER Name: ZAHRA GAMBLE Address: home [address] [place] [address]
--- OUTSIDE RECORDS SUMMARY | 2023-10-22 19:02 | XMS_ITS | Continuity of Care Document ---
Author Name Unknown Organization [facility] Thompson lt Address [address] [place] [address]- Care Team Providers Care Piercing Machine Operator Name Role Phone Nishant ENCARNACION, Emmanuel Vick Primary Care Physician Encounter [facility] [place] Date(s): 01/29/23 - 02/28/23 [facility] Adult [address] [place] [address]- Allergies, Adverse Reactions, Alerts No Known Allergies Immunizations Given and Recorded Vaccine Date Status Refusal Reason [id number] bivalent booster vax 09/20/22 Recorded SARS-CoV-2 (COVID-19) [...] Team Personnel Name: Emmanuel Dillard MD Position: [facility] Primary Care Physician Member Role: PCP Address: Address: [address] [place] [address]- [place] Care Team Related Persons Name: DAVE SCHUMACHER Name: ZAHRA GAMBLE Address: home [address] [place] [address]
--- OUTSIDE RECORDS SUMMARY | 2023-10-22 19:02 | XMS_ITS | Continuity of Care Document ---
Author Name Unknown Organization [facility] Thompson [facility] Address [address] [place] [address]- Care Team Providers Care Curriculum Developer Name Role Phone Nishant ENCARNACION, Emmanuel Vick Primary Care Physician Encounter [facility] [place] Date(s): 03/27/23 - 04/26/23 [facility] Adult [address] [place] [address]- Allergies, Adverse Reactions, Alerts No Known Allergies Immunizations Given and Recorded Vaccine Date Status Refusal Reason [id number] bivalent booster vax 09/20/22 Recorded SARS-CoV-2 (COVID-19) [...] Team Personnel Name: Emmanuel Dillard MD Position: [facility] Physician - Primary Care Member Role: PCP Address: Address: [address] [place] [address]- [place] Care Team Related Persons Name: DAVE SCHUMACHER Name: ZAHRA GAMBLE Address: home [address] [place] [address]
--- OUTSIDE RECORDS SUMMARY | 2023-10-22 19:02 | XMS_ITS | Continuity of Care Document ---
Author Name Unknown Organization [facility] Thompson [facility] Address [address] [place] [address]- Care Team Providers Care Orthopedic Nurse Practitioner Name Role Phone Nishant ENCARNACION, Emmanuel Vick Primary Care Physician [phone] Encounter [place] Date(s): 08/23/23 - 09/22/23 [facility] Adult [address] [place] [address]- Allergies, Adverse Reactions, Alerts No Known Allergies Immunizations Given and Recorded Vaccine Date Status Refusal Reason [id number] bivalent booster vax 09/20/22 Recorded SARS-CoV-2 (COVID-19) [...] Care Team Personnel Name: Nishant ENCARNACION, Emmanuel iVck Position: [facility] Physician - Primary Care Member Role: PCP Address: Address: [address] [place] [address]- Care Team Related Persons Name: DAVE SCHUMACHER Name: ZAHRA GAMBLE Address: home [address] [place] [address]
--- OUTSIDE RECORDS SUMMARY | 2023-10-22 19:02 | XMS_ITS | Continuity of Care Document ---
Author Name Unknown Organization [facility] Thompson lt Address [address] [place] [address]- Care Team Providers Care Rolloff Driver Name Role Phone Nishant ENCARNACION, Emmanuel Vick Primary Care Physician [place] [facility] [place] Date(s): 02/09/23 - 03/11/23 [facility] Adult [address] [place] [address]- Allergies, Adverse Reactions, Alerts No Known Allergies Immunizations Given and Recorded Vaccine Date Status Refusal Reason [id number] bivalent booster vax 09/20/22 Recorded SARS-CoV-2 (COVID-19) [...] Team Personnel Name: Emmanuel Dillard MD Position: [facility] Primary Care Physician Member Role: PCP Address: Address: [address] [place] [address]- [place] Care Team Related Persons Name: DAVE SCHUMACHER Name: ZAHRA GAMBLE Address: home [address] [place] [address]
--- OUTSIDE RECORDS SUMMARY | 2023-10-22 19:02 | XMS_ITS | Continuity of Care Document ---
Author Name Unknown Organization [facility] Thompson [facility] Address [address] [place] [address]- Care Team Providers Care Plunger Scoop Operator Name Role Phone Emmanuel Dillard MD Primary Care Physician En[place] [facility] [place] Date(s): 02/09/21 - 02/16/21 [facility] Adult [address] [place] [address]- Attending Physician: Emmanuel Dillard MD Allergies, Adverse [...] oldest [Reference Range]: 1 Height 174.50 cm (02/09/21 7:01 AM) Weight 77.2 kg (02/09/21 7:01 AM) Oxygen Saturation [94-100 %] 98 % (02/09/21 7:01 AM) Pulse Rate [55-90 bpm] 75 bpm (02/09/21 7:01 AM) Body Mass Index [18.5-24.99] 25.35 *H* (02/09/21 7:01 AM) Blood Pressure [90-138/55-84 mm Hg] 110/ 70mm Hg (02/09/21 7:01 AM) Temperature [96.8-100.4 DegF] 98.6 DegF (02/09/21 7:01 AM) Blood pressure sites Arm, left (02/09/21 7:01 AM) Temperature Route Oral (02/09/21 7:01 AM) Weight Obtained Via Standing scale (02/09/21 7:01 AM) Social History Social History Type Response Smoking Status Never smoker; Tobacc o user in household: No entered on: 06/23/15 Sex
--- OUTSIDE RECORDS SUMMARY | 2023-10-22 19:02 | XMS_ITS | Continuity of Care Document ---
Author Name Unknown Organization [facility] Thompson lt Address [address] [place] [address]- Care Team Providers Care Textile Chemist Name Role Phone Nishant ENCARNACION, Emmanuel Vick Primary Care Physician Encounter [facility] Date(s): 02/09/22 - 03/11/22 [facility] Adult [address] [place] [address]- Allergies, Adverse Reactions, Alerts No Known Allergies [...] a schedule II opioid drug. Start Date: 12/17/21 Status: Ordered Osteo Bi-Flex Plus MSM 1 [...]
--- OUTSIDE RECORDS SUMMARY | 2023-10-22 19:02 | XMS_ITS | Continuity of Care Document ---
Author Name Unknown Organization [facility] Thompson [facility] Address [address] [place] [address]- Care Team Providers Care Child Care Nurse Name Role Phone Nishant ENCARNACION, Emmanuel Vick Primary Care Physician [id number] Date[facility] 07/24/22 - 07/31/22 [facility] Adult [address] [place] [address]- Encounter Diagnosis Ear pain(Discharge Diagnosis) - 07/24/22 Attending Physician: Not on Staff, Attending MD Allergies, Adverse Reactions, Alerts No Known [...] Diagnosis Diagnosis Type Effective Dates Health Status Clini torres Service Informant Ear pain Discharge Diagnosis 07/24/22 Vital Signs Most recent to oldest [Reference Range]: 1 Height 174.50 cm (07/24/22 1:31 PM) Weight 72 kg (07/24/22 1:31 PM) Oxygen Saturation [94-100 %] 98 % (07/24/22 1:31 PM) Pulse Rate [55-90 bpm] 68 bpm (07/24/22 1:31 PM) Body Mass Index [18.5-24.99] 23.65 (07/24/22 1:31 PM) Blood Pressure [90-138/55-84 mm Hg] 99/6 5mm Hg (07/24/22 1:31 PM) Temperature [96.8-100.4 DegF] 98.2 DegF (07/24/22 1:31 PM) Blood pressure sites Arm, left (07/24/22 1:31 PM) Temperature Route Temporal (07/24/22 1:31 PM) Weight Obtained Via Standing scale (07/24/22 1:31 PM) Social History Social History Type Response Smoking Status Never smoker; Tobacc o user in household: No entered on: 06/23/15 Sex Care Team Personnel Name: Emmanuel Dillard MD Address: [address] [place] [address]
--- OUTSIDE RECORDS SUMMARY | 2023-10-22 19:02 | XMS_ITS | Continuity of Care Document ---
Author Name Unknown Organization [facility] Thompson [facility] Address [address] [place] [address]- Care Team Providers Care Fisher Swordfish Name Role Phone Nishant ENCARNACION, Emmanuel Vick Primary Care Physician [phone] [place] [facility] [place] 11/30/22 - 12/30/22 [facility] Adult [address] [place] [address]- Allergies, Adverse Reactions, Alerts No Known Allergies Immunizations Given and Recorded Vaccine Date Status Refusal Reason [id number] bivalent booster vax 09/20/22 Recorded SARS-CoV-2 (COVID-19) [...] Physician Member Role: PCP Address: Address: [address] [place] [address]- Care Team Related Persons Name: DAVE SCHUMACHER Name: ZAHRA GAMBLE Address: home [address] [place] [address]
--- OUTSIDE RECORDS SUMMARY | 2023-10-22 19:02 | XMS_ITS | Continuity of Care Document ---
Author Name Unknown Organization [facility] Thompson lt Address [address] [place] [address]- Care Team Providers Care Ncqa Specialist Name Role Phone Nishant ENCARNACION, Emmanuel Vick Primary Care Physician En[place] [facility] [place] Date(s): 10/26/21 - 11/25/21 [facility] Adult [address] [place] [address]- Allergies, Adverse Reactions, Alerts Substance Reaction Severity [...]
--- OUTSIDE RECORDS SUMMARY | 2023-10-22 19:02 | XMS_ITS | Continuity of Care Document ---
Author Name Unknown Organization [facility] Thompson lt Address [address] [place] [address]- Care Team Providers Care Building Attendant Name Role Phone Nishant ENCARNACION, Emmanuel Vick Primary Care Physician [place] [facility] [place] 03/14/21 - 04/13/21 [facility] Adult [address] [place] [address]- Allergies, Adverse Reactions, Alerts Substance Reaction Severity [...] 0 Refills, Maintenance, 02/20/21 9:37:00 EDT, Tablet, [facility]/pharmacy #[id number], Partial fill upon patient request if the prescription is for a schedule II opioid... Start Date: 02/20/21 Status: Ordered gabapentin 100 mg oral capsule 100 mg, 1, capsule, By Mouth, Daily, # 30 capsule, Refills 2, Tot. Refills 2, Maintenance, 217:13:00 EDT, Route to Pharmacy Electronically, [facility]/pharmacy #[id number], Partial fill upon patient request if the [...] Not Route Start Date: 01/09/18 Status: Ordered PredniSONE By Mouth, Daily, 0 Refills, Maintenance, 04/07/21 14:16:00 EDT, Partial fill upon patient request if the prescription is for a schedule II opioid drug. Start Date: 04/07/21 Status: Ordered Singulair 10 mg oral tablet [...]
--- OUTSIDE RECORDS SUMMARY | 2023-10-22 19:02 | XMS_ITS | Continuity of Care Document ---
Author Name Unknown Organization [facility] Thompson lt Address [address] [place] [address]- Care Team Providers Care Cutlery Grinder Name Role Phone Nishant ENCARNACION, Emmanuel Vick Primary Care Physician [place] [facility] [place](s): 04/19/21 - 05/19/21 [facility] Adult [address] [place] [address]- Allergies, Adverse Reactions, Alerts Substance Reaction Severity [...]
--- OUTSIDE RECORDS SUMMARY | 2023-10-22 19:02 | XMS_ITS | Continuity of Care Document ---
Author Name Unknown Organization [facility] Thompson lt Address [address] [place] [address]- Care Team Providers Care Labor Relations Worker Name Role Phone Nishant ENCARNACION, Emmanuel Vick Primary Care Physician En[place] [facility] [place] Date(s): 07/18/21 - 08/17/21 [facility] Adult [address] [place] [address]- Allergies, Adverse Reactions, Alerts Substance Reaction Severity [...]
--- OUTSIDE RECORDS SUMMARY | 2023-10-22 19:02 | XMS_ITS | Continuity of Care Document ---
Author Name Unknown Organization [facility] Thompson [facility] Address [address] [place] [address]- Care Team Providers Care Telephone Repairer Name Role Phone Emmanuel Dillard MD Primary Care Physician [place] [facility] [place] Date(s): 11/11/21 - 11/18/21 [facility] Adult [address] [place] [address]- Attending Physician: Emmanuel Dillard MD Allergies, Adverse [...] oldest [Reference Range]: 1 Height 174.50 cm (11/11/21 10:26 AM) Weight 68.4 kg (11/11/21 10:26 AM) Oxygen Saturation [94-100 %] 100 % (11/11/21 10:26 AM) Pulse Rate [55-90 bpm] 75 bpm (11/11/21 10:26 AM) Body Mass Index [18.5-24.99] 22.46 (11/11/21 10:26 AM) Blood Pressure [90-138/55-84 mm Hg] 102/ 46mm Hg (11/11/21 10:26 AM) Temperature [96.8-100.4 DegF] 97.8 DegF (11/11/21 10:26 AM) Blood pressure sites Arm, left (11/11/21 10:26 AM) Temperature Route Oral (11/11/21 10:26 AM) Weight Obtained Via Standing scale (11/11/21 10:26 AM) Social History Social History Type Response Smoking Status Never smoker; Tobacc o user in household: No entered on: 06/23/15 Sex
--- OUTSIDE RECORDS SUMMARY | 2023-10-22 19:02 | XMS_ITS | Continuity of Care Document ---
Author Name Unknown Organization [facility] Thompson lt Address [address] [place] [address]- Care Team Providers Care Filler Shredder Machine Name Role Phone Nishant ENCARNACION, Emmanuel Vick Primary Care Physician [place] [facility] [place] Date(s): 01/04/23 - 02/03/23 [facility] Adult [address] [place] [address]- Attending Physician: Darek Isabel Admitting Physician: AdmDarek logan Referring Physician: AdmtrDarek Allergies, Adverse Reactions, Alerts No Known Allergies Immunizations Given and Recorded Vaccine Date Status Refusal Reason [id number] bivalent booster vax 09/20/22 Recorded SARS-CoV-2 (COVID-19) [...] in household: No entered on: 06/23/15 Sex Note * Event Display: Non BH Lab Results Authored Date: * Event Display: Non BH Lab Results Authored Date: * Event Display: Laboratory Result Scanned Authored Date: * Event Display: IR Special Procedures, Non-BH Authored Date: * Event Display: X-Ray Hand/Wrist, Non- BH Authored Date: * Event Display: Radiology Result Scanned Authored Date: * Maritza Iraheta: PERFORM Event Display: Radiology Results Scanned Authored Date: [id number] * Agata Mcleod: PERFORM Event Display: Radiology Results Scanned Authored Date: [id number] CT Skeletal system Multisection for bone density * Event Display: Bone Density Authored Date: CT Head * Event Display: CT Scan Head Authored Date: MG Breast Views * Event Display: MM Mammogram Authored Date: Patient Care team information Care Team Personnel Name: Nishant ENCARNACION, Emmanuel Vick Position: [facility] Primary Care Physician Member Role: PCP Address: Address: [address] [place] [address]- Care Team Related Persons Name: DAVE SCHUMACHER Name: ZAHRA GAMBLE Address: home [address] [place] [address]
--- OUTSIDE RECORDS SUMMARY | 2023-10-22 19:02 | XMS_ITS | Continuity of Care Document ---
Author Name Unknown Organization [facility] Address [address] [place] [address]- Care Team Providers Care Marketing Communications Associate Name Role Phone Nishant ENCARNACION, Emmanuel Vick Primary Care Physician [place] [facility] [place] [facility] [place] [id number] Date(s): 02/20/21 - 03/22/21 [facility] [address] [place], [place] [address] Attending Physician: AdmDarek logan Admitting Physician: AdmtraDrek Referring Physician: Admtr, Ar8 Allergies, Adverse Reactions, [...] Refills, Maintenance, 02/20/21 9:37:00 EDT, Tablet, [id number], Partial fill upon patient request if the prescription is for a schedule II opioid... Start Date: 02/20/21 Status: Ordered multivitamin Multiple Vitamins intravenous solution [...]
--- OUTSIDE RECORDS SUMMARY | 2023-10-22 19:02 | XMS_ITS | Continuity of Care Document ---
Author Name Unknown Organization [facility] Thompson lt Address [address] [place] [address]- Care Team Providers Care Horticulture Professor Name Role Phone Nishant ENCARNACION, Emmanuel Vick Primary Care Physician [place] [facility] [place]/07[place]23 - 06/06/23 [facility] Adult [address] [place] [address]- Allergies, Adverse Reactions, Alerts No Known Allergies Immunizations Given and Recorded Vaccine Date Status Refusal Reason [id number] bivalent booster vax 09/20/22 Recorded SARS-CoV-2 (COVID-19) [...] Team Personnel Name: Emmanuel Dillard MD Position: [facility] Physician - Primary Care Member Role: PCP Address: Address: [address] [place] [address]- [place] Care Team Related Persons Name: DAVE SCHUMACHER Name: ZAHRA GAMBLE Address: home [address] [place] [address]
--- OUTSIDE RECORDS SUMMARY | 2023-10-22 19:02 | XMS_ITS | Continuity of Care Document ---
Author Name Unknown Organization [facility] Thompson lt Address [address] [place] [address]- Care Team Providers Care Rn Corrections Name Role Phone Nishant ENCARNACION, Emmanuel Vick Primary Care Physician [place] [facility] [place](s): 03/29/21 - 04/28/21 [facility] Adult [address] [place] [address]- Allergies, Adverse Reactions, Alerts Substance Reaction Severity [...] Acute 04/29/21 8:00:00 EDT, 04/19/21 8:00:00 EDT, [facility] #[id number], Partial fill upon patient request if the [...]
--- OUTSIDE RECORDS SUMMARY | 2023-10-22 19:03 | XMS_ITS | Continuity of Care Document ---
Author Name Unknown Organization [facility] Thompson lt Address [address] [place] [address]- Care Team Providers Care Coffee Grower Name Role Phone Nishant ENCARNACION, Emmanuel Vick Primary Care Physician [phone] [place] [facility] [place] 03/28/21 - 04/27/21 [facility] Adult [address] [place] [address]- Allergies, Adverse Reactions, Alerts Substance Reaction Severity [...] Acute 04/29/21 8:00:00 EDT, 04/19/21 8:00:00 EDT, [facility]/pharmacy #[id number], Partial fill upon patient request if the [...]
--- OUTSIDE RECORDS SUMMARY | 2023-10-22 19:03 | XMS_ITS | Continuity of Care Document ---
Author Name Unknown Organization [facility] Address [address] [place] [address]- Care Team Providers Care Abrasive Grinder Name Role Phone Nishant ENCARNACION, Emmanuel Vick Primary Care Physician [phone] [place] [facility] [place](s): 04/23/20 - 05/23/20 [facility] [address] [place] [address]- [facility] Attending Physician: Darek Isabel Admitting Physician: AdmDarek [...]
--- OUTSIDE RECORDS SUMMARY | 2023-10-22 19:03 | XMS_ITS | Continuity of Care Document ---
Author Name Unknown Organization [facility] Thompson lt Address [address] [place] [address]- Care Team Providers Care Taproom Attendant Name Role Phone Nishant ENCARNACION, Emmanuel Vick Primary Care Physician [place] [facility] [place](s): 02/08/23 - 03/10/23 [facility] Adult [address] [place] [address]- Allergies, Adverse Reactions, Alerts No Known Allergies Immunizations Given and Recorded Vaccine Date Status Refusal Reason [id number] bivalent booster vax 09/20/22 Recorded SARS-CoV-2 (COVID-19) [...] Team Personnel Name: Emmanuel Dillard MD Position: [facility] Primary Care Physician Member Role: PCP Address: Address: [address] [place] [address]- [place] Care Team Related Persons Name: DAVE SCHUMACHER Name: ZAHRA GAMBLE Address: home [address] [place] [address]
--- OUTSIDE RECORDS SUMMARY | 2023-10-22 19:03 | XMS_ITS | Continuity of Care Document ---
Author Name Unknown Organization [facility] Thompson lt Address [address] [place] [address]- Care Team Providers Care Helpdesk Analyst Name Role Phone Emmanuel Dillard MD Primary Care Physician En[facility] [place] Date(s): 02/09/20 - 02/16/20 [facility] Adult [address] [place] [address]- [facility] Attending Physician: Emmanuel Dillard MD Allergies, Adverse [...] oldest [Reference Range]: 1 Height 174.50 cm (02/09/20 7:03 AM) Weight 75.9 kg (02/09/20 7:03 AM) Oxygen Saturation [94-100 %] 99 % (02/09/20 7:03 AM) Pulse Rate [55-90 bpm] 68 bpm (02/09/20 7:03 AM) Body Mass Index [18.5-24.99] 24.93 (02/09/20 7:03 AM) Blood Pressure [90-138/55-84 mm Hg] 118/ 80mm Hg (02/09/20 7:03 AM) Temperature [96.8-100.4 DegF] 97.5 DegF (02/09/20 7:03 AM) Mode of Delivery (Oxygen) Room air (02/09/20 7:03 AM) Blood pressure sites Arm, left (02/09/20 7:03 AM) Temperature Route Oral (02/09/20 7:03 AM) Weight Obtained Via Standing scale (02/09/20 7:03 AM) Social History Social History Type Response Smoking Status Never smoker; Tobacc o user in household: No entered on: 06/23/15 Sex
--- OUTSIDE RECORDS SUMMARY | 2023-10-22 19:03 | XMS_ITS | Continuity of Care Document ---
Author Name Unknown Organization [facility] Address [address] [place] [address]- Care Team Providers Care Worship Leader Name Role Phone Emmanuel Dillard MD Primary Care Physician [place] [facility] [place] 11/16/19 - 11/23/19 [facility] [address] [place] [address]- [facility] Attending Physician: Lynnette Staples Referring Physician: Emmanuel Dillard MD Allergies, Adverse [...] 10/14/16 11:10:52 Start Date: 10/14/16 Status: Ordered amoxicillin 875 mg oral tablet 1 tablet = 875 mg, By Mouth, 2 times a day, for 10 days, # 20 tablet, 0 Refills, Acute 11/26/19 10:22:00 EST, 11/16/19 10:22:00 EST, Tablet, [id number], 174.5, cm, 11/16/19 9:45:00 EST, Height Start Date: 11/16/19 Stop Date: 11/26/19 Status: Ordered multivitamin Multiple Vitamins intravenous solution See Instructions, OTC, # 100 each, 0 Refills, Maintenance Start Date: 11/11/12 Status: Ordered omeprazole 20 mg oral delayed release tablet 1 tablet = 20 mg, By Mouth, Every other day, # 15 tablet, 0 Refills, Maintenance, 01/09/18 16:55:57 Start Date: 01/09/18 Status: Ordered Plaquenil 200 mg oral tablet [...] oldest [Reference Range]: 1 Height 174.50 cm (11/16/19 9:45 AM) Oxygen Saturation [94-100 %] 100 % (11/16/19 9:45 AM) Pulse Rate [55-90 bpm] 72 bpm (11/16/19 9:45 AM) Systolic Blood Pressure [90-138 mm Hg] 1 15 mm Hg (11/16/19 9:45 AM) Respiratory Rate [16-30 br/min] 16 br/mi n (11/16/19 9:45 AM) Temperature [96.8-100.4 DegF] 98.0 DegF (11/16/19 9:45 AM) Mode of Delivery (Oxygen) Room air (11/16/19 9:45 AM) Blood pressure sites Arm, left (11/16/19 9:45 AM) Temperature Route Oral (11/16/19 9:45 AM) Social History Social History Type Response Smoking Status Never smoker; Tobacc o user in household: No entered on: 06/23/15 Sex
--- OUTSIDE RECORDS SUMMARY | 2023-10-22 19:03 | XMS_ITS | Continuity of Care Document ---
Author Name Unknown Organization [facility] Thompson lt Address [address] [place] [address]- Care Team Providers Care Switch Repairer Name Role Phone Emmanuel Dillard MD Primary Care Physician [phone] En[place] [facility] [place] Date(s): 12/08/20 - 12/15/20 [facility] Adult [address] [place] [address]- Attending Physician: Emmanuel Dillard MD Allergies, Adverse [...] oldest [Reference Range]: 1 Height 174.50 cm (12/08/20 11:56 AM) Social History Social History Type Response Smoking Status Never smoker; Tobacc o user in household: No entered on: 06/23/15 Sex
--- OUTSIDE RECORDS SUMMARY | 2023-10-22 19:03 | XMS_ITS | Continuity of Care Document ---
Author Name Unknown Organization [facility] Address [address] [place] [address]- Care Team Providers Care Drive Thru Order Taker Name Role Phone Emmanuel Dillard MD Primary Care Physician [place] [facility] [place] - 03/30/21 [facility] Adult [address] [place] [address]- Encounter Diagnosis Numbness of both lower extremities(Discharge Diagnosis) - 03/24/21 Flushing reaction(Discharge Diagnosis) - 03/24/21 Attending Physician: Aries MATHIS, Mirella Wright Referring Physician: Emmanuel Dillard MD Allergies, Adverse [...] Refills, Maintenance, 02/20/21 9:37:00 EDT, Tablet, [id number], Partial fill upon patient request if the prescription is for a schedule II opioid... Start Date: 02/20/21 Status: Ordered gabapentin 100 mg oral capsule 100 mg, 1, capsule, By Mouth, Daily, # 30 capsule, Refills 2, Tot. Refills 2, Maintenance, :13:00 EDT, Route to Pharmacy Electronically, [facility]pharm[facility] #[id number], Partial fill upon patient request if the [...] Diagnosis Diagnosis Type Effective Dates Health Status Clinical Service Informant Numbness of both lower extremities Discharge Diagnosis 03/24/21 Flushing reaction Discharge Diagnosis 03/24/21 Vital Signs Most recent to oldest [Reference Range]: 1 Height 174.50 cm (03/23/21 6:50 AM) Social History Social History Type Response Smoking Status Never smoker; Tobacc o user in household: No entered on: 06/23/15 Sex
--- OUTSIDE RECORDS SUMMARY | 2023-10-22 19:03 | XMS_ITS | Continuity of Care Document ---
Author Name Unknown Organization [facility] Thompson [facility] Address [address] [place] [address]- Care Team Providers Care Prepleater Name Role Phone Nishant ENCARNACION, Emmanuel Vick Primary Care Physician [place] [facility] [place] Date(s): 06/13/23 - 07/13/23 [facility] Adult [address] [place] [address]- Allergies, Adverse Reactions, Alerts No Known Allergies Immunizations Given and Recorded Vaccine Date Status Refusal Reason [id number] bivalent booster vax 09/20/22 Recorded SARS-CoV-2 (COVID-19) [...] Team Personnel Name: Emmanuel Dillard MD Position: [facility] Physician - Primary Care Member Role: PCP Address: Address: [address] [place] [address]- [place] Care Team Related Persons Name: DAVE SCHUMACHER Name: ZAHRA GAMBLE Address: home [address] [place] [address]
--- OUTSIDE RECORDS SUMMARY | 2023-10-22 19:03 | XMS_ITS | Continuity of Care Document ---
Author Name Unknown Organization [facility] Address [address] [place] [address]- Care Team Providers Care Staffing Coordinator Name Role Phone Nishant ENCARNACION, Emmanuel Vick Primary Care Physician [phone] Encounter [facility] [place] Date(s): 11/16/19 - 11/26/19 [facility] [address] [place] [address]- [facility] Attending Physician: Darek Isabel Admitting Physician: Darek Isabel Referring Physician: AdmtrDarek Allergies, Adverse Reactions, Alerts [...]
--- OUTSIDE RECORDS SUMMARY | 2023-10-22 19:03 | XMS_ITS | Continuity of Care Document ---
Author Name Unknown Organization [facility] Address [address] [place] [address]- Care Team Providers Care Show Host Or Hostess Name Role Phone Nishant ENCARNACION, Emmanuel Vick Primary Care Physician [place] [facility] [place]21 - 04/13/21 [facility] Adult [address] [place] [address]- Allergies, Adverse Reactions, Alerts Substance Reaction Severity [...] 0 Refills, Maintenance, 02/20/21 9:37:00 EDT, Tablet, [facility]/pharmacy #[id number], Partial fill upon patient request if the prescription is for a schedule II opioid... Start Date: 02/20/21 Status: Ordered gabapentin 100 mg oral capsule 100 mg, 1, capsule, By Mouth, Daily, # 30 capsule, Refills 2, Tot. Refills 2, Maintenance, 217:13:00 EDT, Route to Pharmacy Electronically, [facility]/pharmacy #[id number], Partial fill upon patient request if the [...]
--- OUTSIDE RECORDS SUMMARY | 2023-10-22 19:03 | XMS_ITS | Continuity of Care Document ---
Author Name Unknown Organization [facility] Address [address] [place] [address]- Care Team Providers Care Concrete Technician Name Role Phone Emmanuel Dillard MD Primary [id number] - 03[facility]02/23 [facility] Adult [address] [place] [address]- Attending Physician: Emmanuel Dillard MD Allergies, Adverse Reactions, Alerts No Known Allergies Immunizations Given and Recorded Vaccine Date Status Refusal Reason [id number] bivalent booster vax 09/20/22 Recorded SARS-CoV-2 (COVID-19) [...] recent to oldest [Reference Range]: 1 Height 172.5 cm (02/23/23 8:48 AM) Weight 72.6 kg (02/23/23 8:48 AM) Oxygen Saturation [94-100 %] 100 % (02/23/23 8:48 AM) Pulse Rate [55-90 bpm] 82 bpm (02/23/23 8:48 AM) Body Mass Index [18.5-24.99 kg/m2] 24.4 kg/m2 (02/23/23 8:48 AM) Blood Pressure [90-138/55-84 mm Hg] 102/ 65mm Hg (02/23/23 8:48 AM) Mode of Delivery (Oxygen) Room air (02/23/23 8:48 AM) Blood pressure sites Arm, left (02/23/23 8:48 AM) Weight Obtained Via Standing scale (02/23/23 8:48 AM) Social History Social History Type Response Smoking Status Never smoker; Tobacc o user in household: No entered on: 06/23/15 Sex Patient Care team information Care Team Personnel Name: Nishant ENCARNACION, Emmanuel Vick Position: S Primary Care Physician Member Role: PCP Address: Address: [address] [place] [address]- Care Team Related Persons Name: DAVE SCHUMACHER Name: ZAHRA GAMBLE Address: home [address] [place] [address]
--- OUTSIDE RECORDS SUMMARY | 2023-10-22 19:03 | XMS_ITS | Continuity of Care Document ---
Author Name Unknown Organization [facility] Thompson [facility] Address [address] [place] [address]- Care Team Providers Care Button Sawyer Name Role Phone Nishant ENCARNACION, Emmanuel Vick Primary Care Physician En[place] [facility] [place] Date(s): 07/21/22 - 08/20/22 [facility] Adult [address] [place] [address]- Attending Physician: Veronica BUSINESS OFFICE MANAGER, Gianna Allergies, Adverse Reactions, Alerts No Known Allergies [...] on: 06/23/15 Sex Care Team Personnel Name: Nishant ENCARNACION, Emmanuel Vick Address: [address] [place] [id number]
--- OUTSIDE RECORDS SUMMARY | 2023-10-22 19:03 | XMS_ITS | Continuity of Care Document ---
Author Name Unknown Organization [facility] Address [address] [place] [address]- Care Team Providers Care Endoscopy Support Specialist Name Role Phone Nishant ENCARNACION, Emmanuel Vick Primary Care Physician [place] [facility] [place] Date(s): 12/29/20 - 01/28/[address] [address] Attending Physician: Darek Isabel Admitting Physician: AdmtrDarek Referring Physician: Admtr, ArCadence [...]
--- OUTSIDE RECORDS SUMMARY | 2023-10-22 19:03 | XMS_ITS | Continuity of Care Document ---
Author Name Unknown Organization [facility] Thompson [facility] Address [address] [place] [address]- Care Team Providers Care Yeast Fermentation Attendant Name Role Phone Nishant ENCARNACION, Emmanuel Vick Primary Care Physician En[facility] [place] Date(s): 05/07/23 - 06/06/23 [facility] Adult [address] [place] [address]- Allergies, Adverse Reactions, Alerts No Known Allergies Immunizations Given and Recorded Vaccine Date Status Refusal Reason [id number] bivalent booster vax 09/20/22 Recorded SARS-CoV-2 (COVID-19) [...] Team Personnel Name: Emmanuel Dillard MD Position: [facility] Physician - Primary Care Member Role: PCP Address: Address: [address] [place] [address]- [place] Care Team Related Persons Name: DAVE SCHUMACHER Name: ZAHRA GAMBLE Address: home [address] [place] [address]
--- OUTSIDE RECORDS SUMMARY | 2023-10-22 19:03 | XMS_ITS | Continuity of Care Document ---
Author Name Unknown Organization [facility] Address [address], [address], [address] [place] [address]- Care Team Providers Care Project Eng Name Role Phone Nishant ENCARNACION, Emmanuel Vick Primary Care Physician [place] [facility] [place] Date(s): 03/24/21 - 04/23/21 [facility] [address], [address], [address] [place] [address] Allergies, Adverse Reactions, Alerts Substance Reaction Severity [...] Acute 04/29/21 8:00:00 EDT, 04/19/21 8:00:00 EDT, [facility]/pharmacy #[id number], Partial fill upon patient request if the prescription is for a schedule II opioid drug., 174.5, cm, 05... Start Date: 04/19/21 Stop Date: 04/29/21 Status: Ordered doxycycline hyclate 100 mg oral capsule 1 capsule = 100 mg, By Mouth, 2 times a day, for 7 days, # 14 capsule, 0 Refills, Acute 04/26/21 7:55:00 EDT, 04/19/21 7:55:00 EDT, [facility]/pharmacy #[id number], Partial fill upon patient request if the [...]
--- OUTSIDE RECORDS SUMMARY | 2023-10-22 19:03 | XMS_ITS | Continuity of Care Document ---
Author Name Unknown Organization [facility] Address [address] [place] [address]- Care Team Providers Care Clinical Counselor Name Role Phone Nishant ENCARNACION, Emmanuel Vick Primary Care Physician [place] [facility] [place](s): 07/01/21 - 07/31/21 [facility] Adult [address] [place] [address]- Allergies, Adverse Reactions, Alerts Substance Reaction Severity [...]
--- OUTSIDE RECORDS SUMMARY | 2023-10-22 19:03 | XMS_ITS | Continuity of Care Document ---
Author Name Unknown Organization [facility] Thompson [facility] Address [address] [place] [address]- Care Team Providers Care Fur Finisher Seamstress Name Role Phone Nishant ENCARNACION, Emmanuel Vick Primary Care Physician [phone] [place] [facility] [place]/27/23 - 04/26/23 [facility] Adult [address] [place] [address]- Allergies, Adverse Reactions, Alerts No Known Allergies Immunizations Given and Recorded Vaccine Date Status Refusal Reason [id number] bivalent booster vax 09/20/22 Recorded SARS-CoV-2 (COVID-19) [...] Team Personnel Name: Emmanuel Dillard MD Position: [facility] Physician - Primary Care Member Role: PCP Address: Address: [address] [place] [address]- [place] Care Team Related Persons Name: DAVE SCHUMACHER Name: ZAHRA GAMBLE Address: home [address] [place] [address]
--- OUTSIDE RECORDS SUMMARY | 2023-10-22 19:03 | XMS_ITS | Continuity of Care Document ---
Author Name Unknown Organization [facility] Address [address] [place] [address]- Care Team Providers Care Superintendent Compressor Stations Name Role Phone Nishant ENCARNACION, Emmanuel Vick Primary Care Physician [phone] [place] [facility] [place] Date(s): 06/09/21 - 07/09/[address] [address] Attending Physician: Darek Isabel Admitting Physician: AdmtrDarek Referring Physician: AdmtrDarek Allergies, Adverse Reactions, Alerts [...]
--- OUTSIDE RECORDS SUMMARY | 2023-10-22 19:03 | XMS_ITS | Continuity of Care Document ---
Author Name Unknown Organization [facility] Address [address] [place] [address]- Care Team Providers Care Housing Manager Name Role Phone Nishant ENCARNACION, Emmanuel iVck Primary Care Physician [phone] [place] [facility] [place] 03/10/22 - 04/09/22 [facility] Adult [address] [place] [address]- Allergies, Adverse Reactions, Alerts No Known Allergies [...]
--- OUTSIDE RECORDS SUMMARY | 2023-10-22 19:03 | XMS_ITS | Continuity of Care Document ---
Author Name Unknown Organization [facility] Address [address] [place] [address]- Care Team Providers Care Crankshaft Straightener Name Role Phone Emmanuel Dillard MD Primary Care Physician Encounter [facility] [place] Date(s): 06/29/21 - 07/06/21 [facility] Adult [address] [place] [address]- Attending Physician: Emmanuel Dillard MD Allergies, Adverse [...] oldest [Reference Range]: 1 Height 174.50 cm (06/29/21 7:31 AM) Weight 68.1 kg (06/29/21 7:31 AM) Oxygen Saturation [94-100 %] 98 % (06/29/21 7:31 AM) Pulse Rate [55-90 bpm] 80 bpm (06/29/21 7:31 AM) Body Mass Index [18.5-24.99] 22.36 (06/29/21 7:31 AM) Blood Pressure [90-138/55-84 mm Hg] 118/ 80mm Hg (06/29/21 7:31 AM) Temperature [96.8-100.4 DegF] 97.6 DegF (06/29/21 7:31 AM) Blood pressure sites Arm, left (06/29/21 7:31 AM) Temperature Route Oral (06/29/21 7:31 AM) Weight Obtained Via Standing scale (06/29/21 7:31 AM) Social History Social History Type Response Smoking Status Never smoker; Tobacc o user in household: No entered on: 06/23/15 Sex
--- OUTSIDE RECORDS SUMMARY | 2023-10-22 19:03 | XMS_ITS | Continuity of Care Document ---
Author Name Unknown Organization [facility] Address [address] [place] [address]- Care Team Providers Care Operating Engineer Apprentice Name Role Phone Nishant ENCARNACION, Emmanuel Vick Primary Care Physician [place] [facility] [place]15[place]21 - 08/14/21 [facility] Adult [address] [place] [address]- Allergies, Adverse Reactions, Alerts Substance Reaction Severity [...]
--- OUTSIDE RECORDS SUMMARY | 2023-10-22 19:03 | XMS_ITS | Continuity of Care Document ---
Author Name Unknown Organization [facility] Address [address] [place] [address]- Care Team Providers Care Bilingual Call Center Representative Name Role Phone Nishant ENCARNACION, Emmanuel Vick Primary Care Physician [place] [facility] [place] 05/01/22 - 05/31/22 [facility] Adult [address] [place] [address]- Allergies, Adverse Reactions, Alerts No Known Allergies [...]
--- OUTSIDE RECORDS SUMMARY | 2023-10-22 19:03 | XMS_ITS | Patient Health Record ---
Author Name Unknown [facility] [place] Address [address] [facility] [place] [address] Care Team Providers Care Sr Vice President Name Role Phone Emmanuel Dillard MD Primary Care Provider Unava ilRaul Pierre Unavailable [phone] ALLERGIES Allergen (clinical drug ingredient) Drug/Non Drug Allergy documented on EMR Reaction Allergy Type Onset Date Status Seasonal IC Unknown Drug Allergy Activ e almond allergenic extract [place] (Diagnostic) Unknown Drug Allergy Active peanut allergenic extract Peanut (Diagnostic) Unknown Drug Allergy Active REASON FOR REFERRAL No Information MEDICATIONS Medication SIG (Take, Route, Frequency, Duration) Notes Start Date End Date Status Agnes 1 tablet daily Activ e D3 Adult 25 MCG (1000 UT) 1 tablet Orall y Once a day for 30 day(s) Active Hydroxychloroquine Sulfate 200 MG as directed Orally Active Calcium & Magnesium Carbonates 1 tablet daily Active Centrum Silver 1 tablet daily Active Singulair 10 MG 1 tablet Orally Once a day for 30 day(s) Active Osteo Bi-Flex Triple Strength +msm 1 tablet daily Active Vitamin C 500 MG as directed Orally Active IMMUNIZATIONS Vaccine Route Administration Date Status Comme nts COVID-19 Kristian & Kristian/Kim Unknown 03/05/2021 A dministered SOCIAL HISTORY Tobacco Use: Social History Observation Description Date Details (start date - stop date) Never Smoker NA - NA Sex Assigned At : Social History Observation Description Sex Assigned At Unknown Tobacco Use/Smoking Question Answer Notes Are you a: nonsmoker Additional Findings: Tobacco Non-User Current no n-smoker Alcohol Screen Question Answer Notes Did you have a drink contain ing alcohol in the past year? Yes How often did you have a dri nk containing alcohol in the past year? 2 to 3 times a week (3 points) Points 3 Interpretation Positive Tobacco use other than smoking: Question Answer Notes Are you an other tobacco user? No PLAN OF TREATMENT No Information Insurance Providers Payer Name Payer Address Payer Phone Subscriber Number Group Number Insured Name Patient Relationship to Insured Coverage Start Date Coverage End Date [facility] [id number] SHYLA Menezes [phone] [id number] Nel Orellana Self - patient is the insured MEDICAL (GENERAL) HISTORY Medical History History ICD Code rheumatoid arthritis Back,Hip,and Knee pain Numbness raynauds disease Reflux ( GERD) chronic sinusitis Chicken pox Surgical History Surgery Date(Month/Year) right knee lateral release arthroscopy 1 6
--- OUTSIDE RECORDS SUMMARY | 2023-10-22 19:03 | XMS_ITS | Continuity of Care Document ---
Author Name Unknown Organization [facility] Address [address] [place] [address]- Care Team Providers Care Swatch Folder Name Role Phone Emmanuel Dillard MD Primary Care Physician [place] [facility] [place] 12/27/20 - 01/03/21 [facility] Adult [address] [place] [address]- Attending Physician: Emmanuel Dillard MD Allergies, Adverse [...] oldest [Reference Range]: 1 Height 174.50 cm (12/27/20 7:08 AM) Social History Social History Type Response Smoking Status Never smoker; Tobacc o user in household: No entered on: 06/23/15 Sex
--- OUTSIDE RECORDS SUMMARY | 2023-10-22 19:03 | XMS_ITS | Continuity of Care Document ---
Author Name Unknown Organization [facility] Address [address] [place] [address]- Care Team Providers Care Home Planning Consultant Salesperson Name Role Phone Emmanuel Dillard MD Primary Care Physician [phone] [id number] Date(s): 02/20/21 - 02/27/21 [facility] [address] [place], [place] [address] Encounter Diagnosis Acute cystitis(Discharge Diagnosis) - 02/20/21 Skin yeast infection(Discharge Diagnosis) - 02/20/21 Attending Physician: Wei Sykes Referring Physician: Emmanuel Dillard MD Allergies, Adverse [...] Refills, Maintenance, 02/20/21 9:37:00 EDT, [id number], Partial fill upon patient request if the [...] Dates Health Status Cl inical Service Informant Acute cystitis Discharge Diagnosis 02/20/21 Skin yeast infection Discharge Diagnosis 02/20/21 Vital Signs Most recent to oldest [Reference Range]: 1 Height 174.50 cm (02/20/21 9:17 AM) Oxygen Saturation [94-100 %] 98 % (02/20/21 9:17 AM) Pulse Rate [55-90 bpm] 66 bpm (02/20/21 9:17 AM) Blood Pressure [90-138/55-84 mm Hg] 121/ 75mm Hg (02/20/21 9:17 AM) Respiratory Rate [16-30 br/min] 20 br/mi n (02/20/21 9:17 AM) Temperature [96.8-100.4 DegF] 98.0 DegF (02/20/21 9:17 AM) Mode of Delivery (Oxygen) Room air (02/20/21 9:17 AM) Blood pressure sites Arm, left (02/20/21 9:17 AM) Temperature Route Temporal (02/20/21 9:17 AM) Social History Social History Type Response Smoking Status Never smoker; Tobacc o user in household: No entered on: 06/23/15 Sex
--- OUTSIDE RECORDS SUMMARY | 2023-10-22 19:03 | XMS_ITS | Continuity of Care Document ---
Author Name Unknown Organization [facility] Address Unknown Care Team Providers Care Veneer Matcher Name Role Phone Nishant ENCARNACION, Emmanuel Vikc Primary Care Physician [place] [facility] [place] Date(s): 06/13/21 - 07/13/21 [facility] Attending Physician: Darek Isabel Admitting Physician: Darek Isabel Referring Physician: Darek Isabel Allergies, Adverse Reactions, Alerts Substance Reaction Severity [...]
--- OUTSIDE RECORDS SUMMARY | 2023-10-22 19:03 | XMS_ITS | Continuity of Care Document ---
Author Name Unknown Organization [facility] Address [address] [place] [address]- Care Team Providers Care Paper Cup Machine Operator Name Role Phone Nishant ENCARNACION, Emmanuel Vick Primary Care Physician En[place] [facility] [place] Date(s): 10/29/20 - 11/28/20 [facility] Adult [address] [place] [address]- Allergies, Adverse Reactions, Alerts Substance Reaction Severity [...]
--- OUTSIDE RECORDS SUMMARY | 2023-10-22 19:03 | XMS_ITS | Continuity of Care Document ---
Author Name Unknown Organization [facility] Address [address] [place] [address]- Care Team Providers Care Senior Marketing Manager Name Role Phone Nishant ENCARNACION, Emmanuel Vick Primary Care Physician [place] [facility] [place] 09/08/21 - 10/08/21 [facility] Adult [address] [place] [address]- Allergies, Adverse Reactions, Alerts Substance Reaction Severity [...]
--- OUTSIDE RECORDS SUMMARY | 2023-10-22 19:03 | XMS_ITS | Continuity of Care Document ---
Author Name Unknown Organization [facility] [place] Address [address] [place] [address]- Care Team Providers Care Yard Specialist Name Role Phone Nishant ENCARNACION, Emmanuel Vick Primary Care Physician [phone] Encounter [facility] [place] Date(s): 07/01/21 - 07/31/21 [facility] Adult [address] [place] [address]- Allergies, Adverse Reactions, Alerts Substance Reaction Severity [...]
--- OUTSIDE RECORDS SUMMARY | 2023-10-22 19:03 | XMS_ITS | Continuity of Care Document ---
Author Name Unknown Organization [facility] Address [address] [place] [address]- Care Team Providers Care Drive In Teller Name Role Phone Nishant ENCARNACION, Emmanuel Vick Primary Care Physician En[place] [facility] [place] Date(s): 04/15/21 - 05/15/21 [facility] Adult [address] [place] [address]- Allergies, Adverse Reactions, Alerts Substance Reaction Severity [...]
--- OUTSIDE RECORDS SUMMARY | 2023-10-22 19:03 | XMS_ITS | Continuity of Care Document ---
Author Name Unknown Organization [facility] Address [address] [place] [address]- Care Team Providers Care Sales Planner Name Role Phone Emmanuel Dillard MD Primary Care Physician [phone] [id number] Date[facility] 08/05/21 - 08/12/21 [facility] Adult [address] [place] [address]- Attending Physician: Emmanuel Dillard MD Allergies, Adverse [...] oldest [Reference Range]: 1 Height 174.50 cm (08/05/21 8:55 AM) Weight 69.9 kg (08/05/21 8:55 AM) Oxygen Saturation [94-100 %] 98 % (08/05/21 8:55 AM) Pulse Rate [55-90 bpm] 67 bpm (08/05/21 8:55 AM) Body Mass Index [18.5-24.99] 22.96 (08/05/21 8:55 AM) Blood Pressure [90-138/55-84 mm Hg] 100/ 70mm Hg (08/05/21 8:55 AM) Temperature [96.8-100.4 DegF] 97.5 DegF (08/05/21 8:55 AM) Blood pressure sites Arm, left (08/05/21 8:55 AM) Temperature Route Oral (08/05/21 8:55 AM) Weight Obtained Via Standing scale (08/05/21 8:55 AM) Social History Social History Type Response Smoking Status Never smoker; Tobacc o user in household: No entered on: 06/23/15 Sex
--- OUTSIDE RECORDS SUMMARY | 2023-10-22 19:03 | XMS_ITS | Continuity of Care Document ---
Author Name Unknown Organization [facility] Barry Thompson lt Address [address] [place] [id number] Care Team Providers Care Computer Consultant Name Role Phone Nishant ENCARNACION, Emmanuel Vick Primary Care Physician [phone] [place] [facility] [place]): [place]24[place] - 08/23/22 [facility] [address] [place] [address]- Attending Physician: Admtr, [id number] Admitting Physician: Admtr, [id number] Referring Physician: Admtr, [id number] Allergies, Adverse Reactions, Alerts No Known Allergies [...] on: 06/23/15 Sex Patient Care team information Personnel Name: Emmanuel Dillard MD Address: Address: [address] [place] [id number]
[2023-10-22 20:00] VITALS: BP 138/70; PULSE 72; RESP 16; TEMP 36.8; O2SAT 100
--- NOTE | 2023-10-22 21:22 | ED_ITS ---
HPI - Back Pain/Injury General Chief Complaint: Back Pain/Injury Stated Complaint: severe back pain Time Seen by Provider: 10/22/23 21:21 Source: patient Mode of arrival: ambulatory Limitations: no limitations History of Present Illness HPI Narrative: Patient has chronic low back pain for last 2 years as seen PCP had MRI last year diagnosed as a mild arthritis/disc herniations not surgical case since then patient has been following chiropractor multi this time pain started 1 week ago after over doing at home has seen chiropractor for same pain and was prescribed Flexeril still complain of pain especially when she moves no radiation of pain neurovascular intact Related Data Previous Rx's Medication Instructions Recorded tramadol 50 mg tablet 50 mg PO Q6H PRN pain #20 tabs 10/22/23 Allergies Allergy/AdvReac Type Severity Reaction Status Date / Time No Known Allergies Allergy Verified 10/22/23 17:03 Review of Systems Review of Systems: Yes all other systems are reviewed and are negative PMFSH Social History Social History Alcohol intake: current Alcohol intake frequency: a few times a month Smoked in Last 30 Days: No Use of substances other than those prescribed or required for medical reasons: No Advance Directives: Yes Advance Directives Information Provided: No Advance Directives on File: No Physical Exam Vital Signs: Vital Signs: Last Vital Signs Temp 98.2 F 10/22/23 21:58 Pulse 70 10/22/23 21:58 Resp 18 10/22/23 21:58 BP 132/64 10/22/23 21:58 Pulse Ox 99 10/22/23 21:58 O2 Del Method Room Air 10/22/23 21:58 BMI result Body Mass Index 23.8 Appearance: Alert. Oriented X3. No acute distress. CVS: Normal heart rate and rhythm. Pulses normal. Respiratory: No respiratory distress. Equal air entry bilateral, Abdomen: Soft and nontender. Bowel sounds are present, back: Diffuse deep paraspinal tenderness no midline tenderness patient able to stand up and ambulate a difficulty when she moves Extremities: No lower extremity edema. No calf tenderness Neuro: Oriented X 3. No motor deficit. No sensory deficit SLR negative bilaterally Medications Administered Discontinued Medications Generic Name Dose Route Start Last Admin Trade Name Freq PRN Reason Stop Dose Admin Morphine Sulfate 15 mg 10/22/23 21:22 10/22/23 21:35 Morphine Sulfate Immed Release 15 Mg Tablet PO 10/22/23 21:23 15 mg ONCE ONE Administration Medical Decision Making Medical Decision Making [facility] Narrative: Patient mild arthritis/muscle spasm of the lower back x-ray negative for acute discharge patient home on tramadol tablets advised to continue her Flexeril Independent Interpretation I performed an independent interpretation of an: Plain X-Ray Discharge Plan Discharge Clinical Impression: Strain of lumbar region Patient Disposition: Home, Self-Care Instructions: Low Back Strain (ED) Additional Instructions: Apply ice pack continue Flexeril Start taking tramadol 1 tablet every 6-8 hours as needed for pain Follow with PCP Prescriptions: New tramadol 50 mg tablet 50 mg PO Q6H PRN (Reason: pain) Qty: 20 0RF Interventions: ED Discharge Assessment Last Done: 10/22/23 22:19 Discharge Date/Time: 10/22/23 22:23
[2023-10-22] MEDS: Morphine Sulfate Immed Release 15 MG TABLET PO (21:35)
[2023-10-22 21:58] VITALS: BP 132/64; PULSE 70; RESP 18; TEMP 36.8; O2SAT 99
== END 2023-10-22 22:23 | disposition home or self-care (01) ==
PROVIDERS: Emergency Provider Internal Medicine; PCP Family Medicine
DX: S39.012A Strain of muscle, fascia and tendon of lower back, initial encounter (principal); X58.XXXA Exposure to other specified factors, initial encounter; Y93.9 Activity, unspecified; Y92.9 Unspecified place or not applicable; Y99.9 Unspecified external cause status
CPT/HCPCS: 72100; 99283; 99284